=== PATIENT | male | born 1985 | race Caucasian/White ===

== ENCOUNTER 2016-04-30 06:59 | Day surgery (SDC) | payer OTHER ==
[2016-04-28 13:41] VITALS: BMI 38.5
[~2016-04-30 06:59] MED LIST: DEXAMETHASONE SOD PHOSPHATE 10 MG/ML 1 ML VIAL IV ONE; HEPARIN SODIUM,PORCINE 5,000 UNIT/ML 1 ML VIAL SQ ONE; LACTATED RINGERS 1,000 ML IV SCH; MIDAZOLAM 2 MG/2 ML VIAL IV PRN; ONDANSETRON 4 MG/2 ML VIAL IVP ONE; ceFAZolin 3 GM in SODIUM CHLORIDE 0.9% 100 ML IVPB ONE
[2016-04-30 07:24] VITALS: RESP 16
[2016-04-30] MEDS ORDERED: LIDOCAINE 1% 20 ML VIAL (10MG/ML) FOR IV START INTRADERMA ONE ×2 (07:29→07:30)
--- NOTE | 2016-04-30 07:44 | P.GSHP ---
History of Present Illness H&P Date: 04/30/16 Chief Complaint: Left inguinal hernia This is a 30-year-old male referred from Dr. Gatrh Shankar. Patient presents today for laparoscopic robotic-assisted repair of left inguinal hernia. - Constitutional Constitutional: Reports as per HPI Past Medical History Past Medical History: GERD/Reflux Additional Past Medical History / Comment(s): BACK AND HERNIA PAIN., . History of Any Multi-Drug Resistant Organisms: None Reported Past Surgical History: Hernia Repair, Tonsillectomy Additional Past Surgical History / Comment(s): BROKEN NOSE SURGERY, UMBILICAL HERNIA, PINS IN HAND AND REMOVED. Past Anesthesia/Blood Transfusion Reactions: No Reported Reaction Past Psychological History: ADD/ADHD Smoking Status: Former smoker Past Alcohol Use History: Rare Additional Past Alcohol Use History / Comment(s): SMOKED OFF AND ON FOR 6-7 YEARS. SMOKED 1PPD OR MORE. QUIT SMOKING 03/02/2016. HX OF CHEWING TOBACCO - QUIT. States recently smoked a couple of cigarettes a few weeks ago. Past Drug Use History: None Reported - Past Family History Mother Family Medical History: No Reported History Medications and Allergies Home Medications Medication Instructions Recorded Confirmed Type Dextroamphetamine/Amphetamine 20 mg PO BID 03/06/16 04/30/16 History [Adderall] Ibuprofen [Motrin] 800 mg PO Q6HR PRN 03/06/16 04/30/16 History Allergies Allergy/AdvReac Type Severity Reaction Status Date / Time No Known Allergies Allergy Verified 04/30/16 07:28 Surgical - Exam Vital Signs Temp Pulse Resp BP Pulse Ox 97.4 F L 86 16 137/83 95 04/30/16 07:22 04/30/16 07:22 04/30/16 07:22 04/30/16 07:22 04/30/16 07:22 - General well developed, well nourished, no distress - Eyes PERRL - ENT normal pinna - Neck no masses - Respiratory normal expansion - Cardiovascular Rhythm: regular - Abdomen Abdomen: soft, non tender Hernia: inguinal (Reducible left inguinal hernia) Assessment and Plan Plan: Left inguinal hernia. We'll perform laparoscopic robotic system repair.
[2016-04-30] MEDS ORDERED: LIDOCAINE 1% INJ 10MG/ML (20 ML MDV) ONE (08:09)
[2016-04-30] MEDS ORDERED: HYDROmorphone (PF) 1 MG/ML ONE (08:09)
[2016-04-30] MEDS ORDERED: fentaNYL (PF) 50 MCG/ML 2 ML AMP ONE (08:09)
[2016-04-30] MEDS ORDERED: ROCURONIUM BROMIDE 10 MG/ML 10 ML VIAL IV ONE (08:09)
[2016-04-30] MEDS ORDERED: GLYCOPYRROLATE 0.2 MG/ML 2 ML VIAL ONE (08:09)
[2016-04-30] MEDS ORDERED: PROPOFOL 10 MG/ML 20 ML VIAL IV ONE (08:09)
[2016-04-30] MEDS ORDERED: MIDAZOLAM 2 MG/2 ML VIAL ONE (08:09)
[2016-04-30] MEDS ORDERED: SUCCINYLCHOLINE CHLORIDE VIAL 200 MG/10 ML VIAL IV ONE (08:09)
[2016-04-30] MEDS ORDERED: KETOROLAC 30 MG/ML 1 ML VIAL ONE (08:09)
[2016-04-30] MEDS ORDERED: SODIUM CHLORIDE 0.9% 100 ML BAG ONE (08:09)
[2016-04-30] MEDS ORDERED: ONDANSETRON 4 MG/2 ML VIAL ONE (08:09)
[2016-04-30] MEDS ORDERED: BUPIVACAIN-EPI 0.25%-1:200,000 30 ML VIAL SQ ONE (08:41)
--- NOTE | 2016-04-30 09:28 | P.OP ---
Date of Procedure: 04/30/16 Preoperative Diagnosis: Incarcerated left inguinal hernia Postoperative Diagnosis: Incarcerated left inguinal hernia Procedure(s) Performed: Laparoscopic robotic system repair of incarcerated left inguinal hernia Anesthesia: FIDELINA Surgeon: Domingo Bailey Estimated Blood Loss (ml): 5 Pathology: none sent Condition: stable Disposition: PACU Description of Procedure: The patient's placed on the operating table in the supine position. The patient received general anesthesia. The patient's abdomen was prepped and draped in usual sterile fashion. The skin was anesthetized 1% local Xylocaine at the incision sites. A 5 mm blade less trocar was placed in the left upper quadrant and placed into the peritoneal cavity under direct visualization. The abdomen was insufflated after adequate insufflation a 5 mm laparoscope was placed. Cavity. Using an 11 blade a skin incision was made above the umbilicus. A 12 mm trocar was placed into the peritoneal cavity under direct visitation. The Laparoscope was placed the peritoneal cavity. And a robotic 8 mm trocar was placed in the right lateral position and then another 8 mm robotic trochars placed in the left lateral position. The original 5 mm trocar was exchanged for a 12 mm trocar. The patient was placed in reverse Trendelenburg and then the patient was docked to the robot. The sigmoid colon appeared to be incarcerated into the left inguinal hernia. This was reduced with gentle traction. Next the peritoneum over top of the hernia was incised and then using blunt and sharp dissection and electrocautery the hernia sac was dissected free from the floor of the inguinal canal. The hernia sac was completely reduced into the peritoneal cavity. And then using the Pro relief cook mesh the hernia was repaired. The peritoneum was then sutured with 20V lock suture. The patient was then undocked the robot. The needle was withdrawn from the peritoneal cavity. The umbilical trocar site was closed with 0 Ethibond suture. The skin was closed interrupted 3-0 Monocryl suture. Dermabond dressing was applied. Patient was sent to recovery in stable condition.
[2016-04-30 09:44] VITALS: TEMP 97
[2016-04-30] MEDS: HYDROmorphone 1 MG/ML 1 ML SYRINGE IVP PRN ×3 (10:02→10:24)
[2016-04-30] MEDS ORDERED: HYDROcodone/APAP 7.5-325MG 1 EACH TAB PO ONE (11:01)
[2016-04-30 11:53] VITALS: BP 149/78; PULSE 67
== END 2016-04-30 12:11 | disposition home or self-care (01) ==
LOC: OR 06:59
PROVIDERS: ATTEND Surgery
DX: K40.30 Unilateral inguinal hernia, with obstruction, without gangrene, not specified as recurrent (principal); F98.8 Other specified behavioral and emotional disorders with onset usually occurring in childhood and adolescence; Z79.899 Other long term (current) drug therapy; E66.01 Morbid (severe) obesity due to excess calories; Z68.38 Body mass index [BMI] 38.0-38.9, adult; F17.200 Nicotine dependence, unspecified, uncomplicated
CPT/HCPCS: 49650; S2900